=== PATIENT | male | born 1940 | race Asian ===

== ENCOUNTER 2017-10-30 08:22 | Outpatient (CLI) | payer OTHER | END 2017-10-30 18:00 | disposition home or self-care (01) | LOC: MRI 08:22 | DX: G30.1 Alzheimer's disease with late onset (principal) ==

== ENCOUNTER 2018-02-08 13:19 | Outpatient (CLI) | payer OTHER | END 2018-02-08 13:42 | disposition short-term general hospital (02) | LOC: AMB 13:19 | DX: R41.82 Altered mental status, unspecified (principal); R44.2 Other hallucinations | CPT/HCPCS: A0425; A0429 ==

== ENCOUNTER 2018-02-08 14:01 | Emergency (ER) | payer OTHER ==
[~2018-02-08] VITALS: Ht 175.3 cm; Wt 80.3 kg
[2018-02-08 13:55] VITALS: TEMP 98.1
[2018-02-08 14:49] LABS: POTASSIUM 3.9 mmol/L (3.6-5.2); SODIUM 135 mmol/L (136-145)
[2018-02-08 14:51] LABS: PLATELET COUNT 202 K/uL (142-355)
[2018-02-08 15:02] LABS: PARTIAL THROMBOPLASTIN TIME 26.6 SECONDS (24.5-33.6)
[2018-02-08 17:32] VITALS: BP 140/84
== END 2018-02-08 17:32 | disposition home or self-care (01) ==
LOC: ED 14:01
PROVIDERS: Emergency Medicine
DX: F03.90 Unspecified dementia, unspecified severity, without behavioral disturbance, psychotic disturbance, mood disturbance, and anxiety (principal); R00.0 Tachycardia, unspecified; F22 Delusional disorders; R07.89 Other chest pain
CPT/HCPCS: 80053; 80307; 80320; 80329; 81000; 82550; 82553; 84484; 85027; 85610; 85730; 93005; 99283

== ENCOUNTER 2018-06-19 16:15 | Outpatient (CLI) | payer OTHER | END 2018-06-19 22:41 | disposition home or self-care (01) | LOC: LABW 16:15 | DX: B35.1 Tinea unguium (principal) | CPT/HCPCS: 36415; 84450; 84460 ==

== ENCOUNTER 2019-12-30 14:01 | Outpatient (CLI) | payer OTHER | END 2019-12-30 22:01 | disposition home or self-care (01) | LOC: RAD 14:01 | DX: M54.89 Other dorsalgia (principal); W01.0XXA Fall on same level from slipping, tripping and stumbling without subsequent striking against object, initial encounter ==

== ENCOUNTER 2020-01-09 15:30 | Observation (INO) | payer OTHER ==
[~2020-01-09] VITALS: Ht 172.7 cm; Wt 74.2 kg
[2020-01-09 19:09] VITALS: BP 153/88; TEMP 98.6; Ht 172.7 cm; Wt 74.2 kg
[2020-01-09 19:09] LABS: PLATELET COUNT 319 K/uL (142-355)
[2020-01-09 19:31] LABS: POTASSIUM 4.9 mmol/L (3.6-5.2); SODIUM 137 mmol/L (136-145)
[2020-01-09 20:00] VITALS: BP 151/93; TEMP 97.8
[2020-01-09 23:32] VITALS: BP 140/80; BP 171/102; TEMP 98.1
[2020-01-10 03:53] VITALS: TEMP 97.7
[2020-01-10 05:17] LABS: PLATELET COUNT 238 K/uL (142-355)
[2020-01-10 05:37] LABS: POTASSIUM 4.4 mmol/L (3.6-5.2); SODIUM 138 mmol/L (136-145)
[2020-01-10 08:00] VITALS: BP 155/85; TEMP 97.6
[2020-01-10 12:00] VITALS: BP 149/75; TEMP 97.7
[2020-01-10 16:00] VITALS: BP 142/79; TEMP 98
[2020-01-10 20:00] VITALS: BP 145/87; TEMP 97.8
[2020-01-10 23:49] VITALS: BP 154/80; TEMP 98.1
[2020-01-11 04:00] VITALS: BP 164/87; TEMP 98.3
[2020-01-11 04:22] LABS: PLATELET COUNT 226 K/uL (142-355); POTASSIUM 3.9 mmol/L (3.6-5.2)
[2020-01-11 08:00] VITALS: BP 121/64; TEMP 98.1
[2020-01-11 12:00] VITALS: BP 124/76; TEMP 98.2
== END 2020-01-11 17:10 | disposition home or self-care (01) ==
LOC: MED/SURG 15:30
PROVIDERS: ADMIT Family Medicine
DX: M62.82 Rhabdomyolysis (principal); E86.0 Dehydration; I10 Essential (primary) hypertension; E11.9 Type 2 diabetes mellitus without complications; L98.8 Other specified disorders of the skin and subcutaneous tissue; F03.91 Unspecified dementia, unspecified severity, with behavioral disturbance; M62.81 Muscle weakness (generalized); E53.8 Deficiency of other specified B group vitamins; R53.83 Other fatigue; M54.5 Low back pain; B37.49 Other urogenital candidiasis; B95.7 Other staphylococcus as the cause of diseases classified elsewhere; B96.1 Klebsiella pneumoniae [K. pneumoniae] as the cause of diseases classified elsewhere
CPT/HCPCS: 80053; 81000; 82248; 82550; 82553; 83735; 83880; 84100; 84484; 85027; 86592; 87040; 87070; 87077; 87101; 87185; 87186; 87535; 93005; 96360; 96361; 99220; G0378; G0379; G0432

== ENCOUNTER 2020-09-08 03:40 | Emergency (ER) | payer OTHER ==
[~2020-09-08] VITALS: Ht 172.7 cm; Wt 79.4 kg
[2020-09-08 03:40] VITALS: BP 175/100; TEMP 98.7
[2020-09-08 05:03] LABS: PLATELET COUNT 152 K/uL (142-355)
[2020-09-08 05:15] LABS: POTASSIUM 3.9 mmol/L (3.6-5.2)
[2020-09-08] MEDS ORDERED: QUET25TA2 PO (11:40)
[2020-09-08] MEDS ORDERED: DONEPEZIL HYDRO10 MG PO (11:41)
[2020-09-08] MEDS ORDERED: BENZTROPINE0.5 MG PO (11:43)
[2020-09-08] MEDS ORDERED: HYDR25CA25 PO (11:44)
[2020-09-08] MEDS ORDERED: DICL1GEL2 TOP (11:46)
[2020-09-08] MEDS ORDERED: TRIA0.1C19 TOP (11:47)
[2020-09-08] MEDS ORDERED: BAYER ASPIRIN325 MG PO (11:49)
[2020-09-08] MEDS ORDERED: PEPCID40 MG PO (11:51)
== END 2020-09-08 10:54 | disposition other institution (70) ==
LOC: ED 03:40
PROVIDERS: Family Medicine
DX: F03.91 Unspecified dementia, unspecified severity, with behavioral disturbance (principal); Z11.59 Encounter for screening for other viral diseases; Z04.6 Encounter for general psychiatric examination, requested by authority
CPT/HCPCS: 36415; 80053; 81000; 85027; 87635; 93005; 99285; U0003

== ENCOUNTER 2021-01-13 16:48 | Outpatient (CLI) | payer OTHER ==
[~2021-01-13 16:48] MED LIST: ACET-206 PO; BAYER ASPIRIN325 MG PO; BENZTROPINE0.5 MG PO; DICL1GEL2 TOP; DONEPEZIL HYDRO10 MG PO; HYDR25CA25 PO; MAGNSUS68 PO; MEMA5TAB PO; OLANZAPINE5 MG PO; PEPCID40 MG PO; QUET25TA2 PO; TRIA0.1C19 TOP
[2021-01-13 17:08] LABS: PLATELET COUNT 151 K/uL (142-355)
[2021-01-31] MEDS ORDERED: MEMA5TAB PO (08:42)
[2021-01-31] MEDS ORDERED: SCOP1.5D TOP (08:43)
[2021-01-31] MEDS ORDERED: OLAN2.5T2 PO (08:43)
== END 2021-01-13 21:56 | disposition home or self-care (01) ==
LOC: LABW 16:48
PROVIDERS: ATTEND Nurse Practitioner Family
DX: E86.0 Dehydration (principal)
CPT/HCPCS: 36415; 80053; 82550; 82553; 85027

== ENCOUNTER 2021-01-14 11:39 | Outpatient (CLI) | payer OTHER ==
[~2021-01-14] VITALS: Ht 167.6 cm; Wt 75.7 kg
[2021-01-31] MEDS ORDERED: MEMA5TAB PO (08:42)
[2021-01-31] MEDS ORDERED: OLAN2.5T2 PO (08:43)
[2021-01-31] MEDS ORDERED: SCOP1.5D TOP (08:43)
== END 2021-01-14 21:32 | disposition home or self-care (01) ==
LOC: INF 11:39
PROVIDERS: ATTEND Family Medicine
DX: M62.82 Rhabdomyolysis (principal)
CPT/HCPCS: 96360; 96361

== ENCOUNTER 2021-01-20 02:02 | Inpatient (IN) | payer OTHER ==
[~2021-01-20] VITALS: Ht 167.6 cm; Wt 74.1 kg
[2021-01-20] VITALS (10 sets, daily range): BP systolic 117–181; BP diastolic 62–96; TEMP 98.7–101.4; Ht 167.6 cm; Wt 74.1 kg
[2021-01-20 03:09] LABS: PLATELET COUNT 179 K/uL (142-355)
[2021-01-20 03:27] LABS: POTASSIUM 4.4 mmol/L (3.6-5.2)
--- NOTE | 2021-01-20 06:48 | NUR ---
01/20/21 AT 0458 PT. ADMITTED TO ROOM #1111 VIA STRETCHER FROM THE ER TO DR. NEGRON CARE FOR DIAGNOSIS OF URINARY TRACT INFECTION, UROSEPSIS AND ALTERED MENTAL STATUS. PT. HAS A HISTORY OF DEMENTIA, ALZHEIMERS DISEASE, AND SCHIZOPHRENIA. HE LIVES AT HOME WITH HIS DAUGHTER WHO IS HIS PRIMARY CAREGIVER AND IS MANAGED WELL NORMALLY. WHEN PATIENT HAS UTI OR ANY OTHER ILLNESS IN THE PAST HE HAS GOTTEN CONFUSED AND BECOME COMBATIVE AND AGGRESSIVE TO HIS DAUGHTER BUT NORMALLY IS COOPERATIVE WITH CARE. PT. DAUGHTER HAD HIM EVALUATED IN THE ER LAST PM DUE TO "NOT ACTING HIS NORM, WEAKNESS, FREQUENT URINATION AND TREMORS. HE WAS FOUND TO HAVE A UTI AND WAS FEBRILE ON ARRIVAL TO ER WITH A TEMP OF 101.4 AND HIS LACTIC ACID LEVEL IS ELEVATED AT 1.5 . PATIENT IS UNABLE TO UNDERSTAND INSTRUCTIONS SO HE IS AND WILL BE FREQUENTLY CHECKED ON AND HIS BED ALARM IS TO REMAIN ON AT ALL TIMES. PT. DOES NORMALLY AMBULATE VERY WELL AT HOME ON A NORMAL BASIS. WILL CONTINUE TO MONITOR.
--- NOTE | 2021-01-20 10:04 | NUR ---
UPDATED DR. PIERSON ON PT'S LABS AND URINALYSIS FROM THE ER, DR. PIERSON ORDERS TO CHANGE THE ROCEPHIN FROM Q24 TO Q12 AND TO REPEAT A CBC, LACTIC ACID, CMP WITH MAG AND PHOS, NO FURTHER ORDERS GIVEN AT THIS TIME
--- NOTE | 2021-01-20 10:22 | NUR ---
01/20/2021 1020 LAB PRESENT IN ROOM TO COLLECT BLOOD FOR NEW ORDERS PER DR. PIERSON.CC
--- NOTE | 2021-01-20 10:49 | NUR ---
DR. PIERSON ORDERS TO START PT'S HOME MEDS AT THIS TIME, NO FUTHER ORDERS GIVEN
[2021-01-20 10:53] LABS: PLATELET COUNT 184 K/uL (142-355)
--- NOTE | 2021-01-20 11:37 | NUR ---
01/20/2021 1050 DAUGHTER ANAYELI BEAVER CALLED TO NURSING STATION TO CHECK ON FATHER.DAUGHTER STATES PT NORMALLY TALKS AND AMBULATES BUT NOT SINCE HE HAS BEEN SICK.ALSO PT NORMALLY HAS A GOOD APPETITE BUT TOLD HER PT WILLNOT EAT ANYTHING AT THIS TIME SMALL BITES OF PUDDING.DAUGHTER STATED SHE WILL COME BY THIS AFTERNOON.CC
[2021-01-20 12:01] LABS: POTASSIUM 4.3 mmol/L (3.6-5.2)
--- NOTE | 2021-01-20 12:55 | NUR ---
01/20/2021 1300 PT GIVEN SIPS OF TEA WITH 1 BITE OF FOOD NOT EATING MUCH.BRIEF CHANGED WITH URINE CLEAR YELLOW IN COLOR NO ODOR.BEDALARM PLACED BACK ON BED.CC
--- NOTE | 2021-01-20 13:56 | NUR ---
01/20/2021 1350 PT EYES OPEN GARBLED SPEECH OFFERED SIPS OF TEA BUT DOESNOT WANT ANY AT THIS TIME.CALL LIGHT WITHIN REACH.CC
--- NOTE | 2021-01-20 14:50 | NUR ---
01/20/2021 1450 PT IS AWAKE UPON NTRY TO ROOM OFFERED PT SOMETHING TO DRINK BUT REFUSED ANYTHING.PT IS STATING FOR ME TO LEAVE ROOM AND NOT COME BACK.TOLD HIM I WILL LEAVE BUT WILL RETURN SHORTLY.CALL LIGHT WITHIN REACH.BEDALARM IS ON.CC
--- NOTE | 2021-01-20 15:24 | NUR ---
01/20/2021 1310 PT OUT OF BED ON HIS ON PULLED IV OUT AOOLIED 2X2 APPLIED SECURED WITH TEGADERM.BRIEF CHANGED LARGED URINE.CC
--- NOTE | 2021-01-20 16:03 | NUR ---
01/20/2021 1605 LAB PRESENT IN ROOM TO COLLECT BLOOD FOR LACTIC ACID.CC
--- NOTE | 2021-01-20 16:58 | NUR ---
01/20/2021 1703 RASHMI ALBA WENT TO SEE PATIENT IS SLEEPINE EYES CLOSED RESP EVEN NONLABORED.CC
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
--- NOTE | 2021-01-20 17:41 | NUR ---
01/20/2021 1746 PT BEDALARM GOING OFF WENT TO ROOM PT PULLED BRIEF OFF AND GOWN OFF.PT IS AGGRESSIVE KICKING LEGS AT NURSES.CURSING AT NURSES REFUSED CARE.CALL LIGHT WITHIN REACH.CC
--- NOTE | 2021-01-20 18:16 | NUR ---
01/20/20211754 HERE NOTIFIED HER OF PATIENT WANTS TO BE AGRESSIVE AND KICK LEGS AND REFUSING CARE.NEW ORDERS RECEIVED PER .CC
--- NOTE | 2021-01-20 18:42 | NUR ---
01/20/2021 1840 PT IS LYING EYES CLOSED RESP EVEN NONLABORED NOT QUIET ASLEEP NOT TRYING TO GET OUT OF BED.BEDALARM IS ON BED.CC
[2021-01-21] VITALS: BP 148/72; TEMP 98.7
[2021-01-21 04:00] VITALS: BP 142/79; TEMP 100
[2021-01-21 04:09] LABS: PLATELET COUNT 166 K/uL (142-355)
[2021-01-21 04:53] LABS: POTASSIUM 4.1 mmol/L (3.6-5.2)
[2021-01-21 08:00] VITALS: BP 142/72; TEMP 100.2
--- NOTE | 2021-01-21 09:31 | NUR ---
01/21/2021 0850 ASSISTED PT TO EAT BREAKFAST PT EAT PUDDING AND SOME GRITS AND EGGS.ALSO DRUNK I CARTON OF MILK AND JUICE.PT WAS AGREEABLE WHILE EATING BREAKFAST.BUT PT STARTING SWINGING ARMS AND SOMEWHAT AGGRESSIVE DIDNOT TRY TO GET OF BED.WENT BACK TO SLEEP AFTER THIS.CALL LIGHT WITHIN REACH ALSO BED ALARM IS ON.CC
--- NOTE | 2021-01-21 10:34 | NUR ---
01/21/2021 1000 PT BRIEF CHANGED WITH LARGE URINE.BED LINEN AND GOWN CHANGED.PT IS CALM WHILE TURNING AND REPOSTIONED.PT IS POSTIONED TO RT SIDE.NAD NOTED.CALL LIGHT WITHIN REACH.CC
--- NOTE | 2021-01-21 10:45 | NUR ---
01/21/2021 1040 DAUGHTER PRESENT IN ROOM SPOKE WITH HER ABOUT HER FATHER AND CONDITION.ALSO TOLD HER THAT I WILL LET KALIN RASHMI KNOW IF THERE IS ANYTHING FURTHER SHE NEEDS TO SPEAK TO HER ABOUT.CC
--- NOTE | 2021-01-21 10:52 | NUR ---
01/21/2021 1050 PARTH LEUNG TO SPEAK WITH DAUGHTER ANAYELI DISCUSSED PLAN OF CARE AFTER DISCHARGE FROM HOSPITAL.CC
[2021-01-21 12:00] VITALS: BP 90/50; TEMP 98.7
--- NOTE | 2021-01-21 12:45 | NUR ---
01/21/2021 1250 RESTING WITH EYES CLOSED RESP EVEN NONLABORED NAD NOTED.CALL LIGHT WITHIN REACH.CC
--- NOTE | 2021-01-21 13:19 | NUR ---
01/21/2021 1315 ASSISTED PT TO EAT SOME SQUASH ALSO DRUNK ENSURE PLUS.AND ALSO DRUNK CUP OF TEA.PT WAS MORE AGREEABLE A THIS TIME.PT STATED HE HAD TO PEE OFFERED URINAL WILL CONTINUE TO MONITOR FOR OUTPUT.CC
--- NOTE | 2021-01-21 13:30 | NUR ---
01/21/2021 PT DIDNOT VOID IN URINAL AT THIS TIME.CC
--- NOTE | 2021-01-21 14:10 | NUR ---
01/21/2021 1330 TURNED AND REPOSTIONED FOR COMFORT PT TOLERATED WELL NO AGGRESSIVE EPISODE.CALL LIGHT WITHINREACH.CC
--- NOTE | 2021-01-21 14:38 | NUR ---
01/21/2021 1430 RESTING IN BED WITH EYES CLOSED RESP EVEN NONLABORED NAD NOTED.CALL LIGHT WITHIN [facility].CC
[2021-01-21 16:00] VITALS: BP 129/73; TEMP 98.9
--- NOTE | 2021-01-21 18:19 | NUR ---
01/21/2021 1745 BRIEF CHANGED WITH LARGE URINE CLEAR IN COLOR.TURNED AND REPOSTIONED TOLERATED WELL.NO AGGRESSIVE BEHAVIOR.CALL LIGHT WITHIN REACH.CC
--- NOTE | 2021-01-21 18:23 | NUR ---
01/21/2021 1800 PT FED DINNER TRAY 50 PERCENT TOLERATED WELL.NO AGGRESSIVE BEHAVIOR NOTED PER PCT.CC
[2021-01-21 19:58] VITALS: BP 149/74; TEMP 100
[2021-01-22] VITALS (7 sets, daily range): BP systolic 91–181; BP diastolic 66–100; TEMP 97.6–99.1
--- NOTE | 2021-01-22 02:15 | NUR ---
PATIENT LYING IN BED IN LOW FOWLERS POSITION WITH EYES OPEN. PATIENT DENIES ANY PAIN, NEEDS OR C/O AT THIS TIME. NO S/SX OF DISTRESS NOTED WITH PATIENT AT THIS TIME.
--- NOTE | 2021-01-22 02:52 | NUR ---
AT 0000 PATIENT WAS BECOMING AGGITATED AND HIS BP WAS 176/100. I CALLED DR PIERSON TO SEE IF SHE WANTED ANY MEDICATION FOR HIS BP. SHE SAID WAIT 30MINS AFTER HE CALMED DOWN AND GET A MANUAL BP. IF HIS SYSTOLIC WAS STILL OVER 150 GIVE HIM 0.2 MG OF CLONIDINE. I RECHECKED IT MANUALLY AND IT WAS 140/82. THE CLONIDINE WAS HELD
--- NOTE | 2021-01-22 04:09 | NUR ---
PATIENT BECOMES VERBALLY AGGRESSIVE TO STAFF DURING VITALS CHECK AND BRIEF CHANGES. STAFF CONTINUES TO REORIENT AND REASURE PATIENT OF HIS SAFTY. PATIENT IS NOW RESTING QUIETLY BUT MUMBLING SOFTLY TO HIMSELF. NO ADISTRESS NOTED
[2021-01-22 05:13] LABS: PLATELET COUNT 182 K/uL (142-355)
--- NOTE | 2021-01-22 08:11 | NUR ---
PT LAYING IN BED IN NAD, PT AWAKENS TO VOICE, ACCEPTS PERICARE AND REPOSITIONING FROM STAFF. MED, SOFT BM AND URINARY INCONTINENCE NOTED.
--- NOTE | 2021-01-22 09:33 | NUR ---
MG RIDER SPIKED, INFUSING PER PROTOCOL W/O DIFFICULTY.
--- NOTE | 2021-01-22 09:49 | NUR ---
PO MEDS CRUSHED AND ADMIN IN APPLESAUCE. DAUGHTER AT BEDSIDE. PT ACCEPTS MEDS, IS COMPLIANT WITH STAFF, CONVERSES WITH DAUGHTER.
--- NOTE | 2021-01-22 11:25 | NUR ---
PHOS RIDER SPIKED, INFUSING TO 22G IN RFA PER PHARMACY RECOMMENDATION. PT ÁNGELA WELL.
--- NOTE | 2021-01-22 12:41 | NUR ---
PT RECIEVED A BED BATH THIS AM WITH NO AGGRESSIVE BEHAVIORS TO STAFF.
--- NOTE | 2021-01-22 13:13 | NUR ---
PT INCONTINENT URINE- LINENS CHANGED, PERICARE PROVIDED.
--- NOTE | 2021-01-22 13:58 | NUR ---
PT LAYING IN BED, EYES CLOSED, RR EVEN AND NON LABORED, BED LOW, LOCKED, SR UP X 2 FOR SAFETY. CALL LIGHT IN EASY REACH. ALARM SET.
--- NOTE | 2021-01-22 14:25 | NUR ---
OBSERVED PT SITTING ON THE FLOOR. NO INJURIES NOTED. MD AND FAMILY NOTIFIED. DOCUMENTATION COMPLETED PER POLICY.
--- NOTE | 2021-01-22 14:30 | NUR ---
DR. PIERSON NOTIFIED OF EVENT BY Stephen RUIZ RN CN. VO GIVEN TO CONTINUE TO MONITOR FOR CHANGES AND NOTIFY
--- NOTE | 2021-01-22 14:40 | NUR ---
PT'S DAUGHTER NOTIFIED. DAUGHTER IN TO BRING PT FOOD FROM HOME.
--- NOTE | 2021-01-22 15:20 | NUR ---
IVPB ROCEPHIN SPIKED, DAUGHTER STILL AT BEDSIDE FEEDING PT FOOD FROM HOME. PT IN NAD, IS EAING AND TALKING TO FAMILY MEMBER.
--- NOTE | 2021-01-22 16:28 | NUR ---
PT IN LOW FOWLERS SITTING UP IN BED, IN NAD, LOOKING OUTSIDE THE WINDOW, BED LOW, LOCKED, SR UP X3, BED ALARM ON.
--- NOTE | 2021-01-22 17:25 | NUR ---
BED ALARM SOUNDED, PT SITTING ON SIDE OF BED, ATTEMPTED TO ASSIST PT BACK TO BED X 2 PERSON ASSIST, PT RESISTED HELP AND STATED HE WAS GOING TO CALL THE POLICE BECAUSE WE WERE "TRYING TO STEAL FROM HIM". PT REPOSITIONED, BED LOW, LOCKED, SR UP X3 FOR SAFETY, BED ALARM LOCKED.
--- NOTE | 2021-01-22 18:00 | NUR ---
PT REFUSED PM TRAY, REFUSED ENSURE, REFUSED BANANA, ACCEPTED TEA AND COOKIE. BED LOW, LOCKED, SR UP X3 FOR SAFETY, BED LOW, LOCKED, ALARM SET, CALL LIGHT IN EASY REACH.
--- NOTE | 2021-01-23 03:15 | NUR ---
IV INFILTRATED AT THIS TIME. UNABLE TO OBTAIN IV ACCESS DUE TO AGITATED BEHAVIOR.
[2021-01-23 03:28] VITALS: BP 113/89; TEMP 97.7
--- NOTE | 2021-01-23 05:51 | NUR ---
@ 0987 ON 01/23/21 [id number] MARINELLI RN, CHARGE NURSE, UPDATED DR. PIERSON OF PATIENT'S INCREASING AGGITATION, CURSING AT STAFF, REFUSAL OF MEDICATIONS AND INSERTION OF IV AFTER PATIENT REMOVED PREVIOUS IV, AND REFUSAL OF AM LAB DRAW ON THIS DATE. RECEIVED NEW VERBAL ORDERS FOR ATIVAN 2MG IM, HALDOL 10MG IM, AND BENADRYL 50MG IM X1 DOSE NOW, ORDERS NOTED AND CARRIED OUT. @ 2524 ON 01/23/21 ATIVAN 2MG IM, HALDOL 10MG IM, AND BENADRYL 50MG IM ALL GIVEN TO LEFT GLUTEUS JOSE WITHOUT DIFFICULTY AND WITHOUT INCIDENT.
[2021-01-23 07:42] LABS: PLATELET COUNT 216 K/uL (142-355)
[2021-01-23 08:00] VITALS: BP 142/94; TEMP 97.6
[2021-01-23 08:01] LABS: POTASSIUM 4.1 mmol/L (3.6-5.2)
--- NOTE | 2021-01-23 10:14 | NUR ---
DAUGHTER IN TO SHAVE AND BATH PT, ASSIST PROVIDED TO DAUGHTER WITH BATHING AND LINEN CHANGE. BED LOW, LOCKED SR UP X2 FOR SAFETY, CALL LIGHT IN EASY REACH.
[2021-01-23 12:08] VITALS: BP 165/87; TEMP 97.3
[2021-01-23 16:00] VITALS: BP 148/87; TEMP 98
--- NOTE | 2021-01-23 16:07 | NUR ---
DR PIERSON CONTACTED ABOUT THIS PATIENT BEING ADMITTED TO THE [facility] FOR SERVICES OF DR HENSLEY. I SPOKE WITH EDER ODELL RN WHO SAID THEY WOULD BE GLAD TO LOOK OVER HIS INFORMATION AND IF POSSIBLE TAKE THE PATIENT IN THE MORNING. I FAXED INFORMATION TO THE U FOR REVIEW IN THE MORNING.
--- NOTE | 2021-01-23 16:55 | NUR ---
UPDATE GIVEN TO PT'S DAUGHTER ANAYELI AT [phone]
[2021-01-23 19:01] VITALS: BP 162/89; TEMP 97.6
--- NOTE | 2021-01-23 20:12 | NUR ---
PT LETHARIC AT THIS TIME IN A HIGH-FOWLERS POSITION WITH BED IN THE LOWEST POSITION. PT. REFUSED PM PO MEDS AT THIS TIME.
[2021-01-23 23:32] VITALS: BP 164/97; TEMP 98
[2021-01-24 03:32] VITALS: BP 182/107; TEMP 98.4
--- NOTE | 2021-01-24 04:16 | NUR ---
0442- PHYSICIAN NOTIFIED ON PT'S MANUAL BP OF 184/106 AT THIS TIME. RECIEVED ORDERS FOR CLONIDINE 0.1 MG PO ONCE NOW DOSE AT THIS TIME, NOTED AND CARRIED OUT AT THIS TIME.
[2021-01-24 05:18] LABS: PLATELET COUNT 215 K/uL (142-355)
[2021-01-24 05:47] LABS: POTASSIUM 3.6 mmol/L (3.6-5.2)
--- NOTE | 2021-01-24 07:45 | NUR ---
PT'S AM ASSESSMENT COMPLETED AT THIS TIME. DEVORA PCT IN TO OBTAIN AM V/S. PT NOTED TO BE LAYING IN BED IN HF WITH EYES CLOSED. BREATHING NOTED TO BE EVEN AND UNLABORED. NS INFUSING TO 22G IV IN RFA AT 30ML/HR. PT NOTED TO HAVE POOR ORAL INTAKE REFUSING FOOD AND DRINK FROM STAFF.
[2021-01-24 08:00] VITALS: BP 148/70; TEMP 97.7
--- NOTE | 2021-01-24 08:15 | NUR ---
DEVORA, PCT OFFERED PT HIS BREAKFAST, PT REFUSES HIS BREAKFAST STATING "I DON'T WANT THAT FUCKING SHIT"
--- NOTE | 2021-01-24 09:53 | NUR ---
SPOKE WITH PT'S DAUGHTER TO NOTIFY HER OF REFERRAL TO [facility]. PT'S DAUGHTER STATES "HE IS JUST SUPPOSE TO BE GOING TO [place] FOR THERAPY." INFORMED HER THAT SOME OF HIS MEDS CAN BE ADJUSTED AND IMPROVE HIS BEHAVIOR BEFORE GOING TO [place]. DAUGHTER STATES "HE HAS BEEN THERE BEFORE, SO I KNOW ABOUT IT, I'M OK WITH HIM GOING THERE"
--- NOTE | 2021-01-24 09:59 | NUR ---
VERIFIED WITH DR. PIERSON IF PT'S WAS GOING TO BE A 10-13. DR. PIERSON STATES "THE FAMILY CAN SIGN HIM IN" ATTEMPTED TO CALL NETTIE PLAZA AT [facility]. NO ANSWER AT THIS TIME. WILL CON'T TO TRY TO CALL.
--- NOTE | 2021-01-24 10:15 | NUR ---
SPOKE WITH NETTIE PLAZA WHO STATES "PT'S FAMILY CANNOT SIGN HIM IN BECAUSE [facility] IS NOT POWER OF [employer] OR SHE WASN'T THE LAST TIME, I WILL CALL HER TO VERIFY" SPOKE WITH SARAH ALBA, WHO CONFIRMS PT HAS TO BE 10-13 BECAUSE THERE IS NO POWER OF [employer].
--- NOTE | 2021-01-24 10:25 | NUR ---
NOTIFIED DR. PIERSON OF 08-24. DR. PIERSON THEN STATES "OK WHO IS THE HOSPITALIST, CAN THEY SIGN FOR ME?" INFORMED HER DR. CANTU IS ON AND I WILL GET WITH HIM AND LET HER KNOW.
--- NOTE | 2021-01-24 10:26 | NUR ---
SPOKE WITH DR. CANTU REPORT GIVEN ON PT'S STATUS AND DR. PIERSON'S REQUEST FOR HIM TO SIGN 10-13. DR. CANTU STATES "YEAH I'LL DO IT, JUST FILL IT OUT AND BRING IT TO ME." DR. PIERSON NOTIFIED OF DR. CANTU'S REPSONSE. NO NEW ORDERS AT THIS TIME.
--- NOTE | 2021-01-24 10:35 | NUR ---
10-[address] OBTAINED AND SIGNED BY DR. CANTU AND MYSELF.
--- NOTE | 2021-01-24 10:45 | NUR ---
PT DAUGHTER BROUGHT HIM SOME PANCAKES PER HIS REQUEST. WHEN PT'S DAUGHTER ATTEMPTED TO FEED PT, PT STATES "GET THAT SHIT OUT OF MY FACE, STOP TRYING TO PUT IT IN MY EYE" PT'S DAUGHTER REASSURED HIM SHE WAS NOT TRYING TO PUT IT IN HIS EYE, PT CON'T TO REFUSE HIS MEAL.
--- NOTE | 2021-01-24 11:15 | NUR ---
PT'S DAUGHTER AT BEDSIDE. PARTH RN, UR DELINQUENT TAX COLLECTOR ASSISTANT AND MYSELF AT PT'S BEDSIDE AT THIS TIME TO SPEAK WITH PT'S DAUGHTER ANAYELI. PARTH NOTIFIED HER OF [facility] DECISION ABOUT ACCEPTING MR. LAURA AT THIS TIME. I UPDATED HER ON THE STATUS OF PT BEING TRANSFERRED TO [facility].
--- NOTE | 2021-01-24 11:34 | NUR ---
08-24 FAXED TO NETTIE PLAZA AT [facility].
--- NOTE | 2021-01-24 12:06 | NUR ---
REPORT GIVEN TO VANDANA NEGRON RN. ALL QUESTIONS ANSWERED. WILL SEND TECHS TO [employer] PT WHEN THEY ARE AVAILABLE.
--- NOTE | 2021-01-24 12:25 | NUR ---
PT IV DC'D TIP INTACT NO REDNESS OR SWELLING NOTED. TELEMETRY REMOVED AT THIS TIME.
--- NOTE | 2021-01-24 12:50 | NUR ---
COSME BRITO, [facility] TECH HERE TO GET PT. PT ASSISTED X2 TO W/C. PT TOLERATED WELL WITHOUT ANY AGRESSION OR COMBATIVE BEHAVIORS.
--- NOTE | 2021-01-24 17:19 | NUR ---
i received voice mail time stamped 01/21/21 @ 5:11pm from Elvia @ [facility] stating that pt did not meet inpt criteria. ref#[id number]. she requested additional clinical by 01/22 @ 12:15pm or peer to peer by this deadline. i phoned her today after Dr. Goldstein requested peer to peer, ph [phone] x [phone], fx [phone]. i am also faxing her additional clinical.
--- NOTE | 2021-01-25 15:29 | NUR ---
late entry 01/24/21 per Ivy @ [facility], pt is not yet stable for auth for [facility]. Daughter was requesting [facility] but they are not in network with members medicare advantage plan per Ivy. Our facility is in network for skilled/swing or he may also use [facility], [facility], or [facility]. Ivy stated to call back and restart the auth process when pt is stable and ready for this service. ph [phone].
--- NOTE | 2021-01-26 08:43 | NUR ---
per Gege Arambula @ [facility] this am 01/26/21 @ 7:10am, Dr. Goldstein can call for peer to peer review to their medical microbiologist Dr. Booker [phone] by tomorrow 01/27/21 @ 8am. I will notify Dr. Goldstein. [facility] , they are denying inpatient level of care.
--- NOTE | 2021-01-26 16:26 | NUR ---
per Dr. Goldstein, she did the peer review and got the inpatient stay approved by [facility] today.
[2021-01-31] MEDS ORDERED: MEMA5TAB PO (08:42)
[2021-01-31] MEDS ORDERED: SCOP1.5D TOP (08:43)
[2021-01-31] MEDS ORDERED: OLAN2.5T2 PO (08:43)
== END 2021-01-24 12:50 | disposition other institution (70) | DRG 872 ==
LOC: ED 02:02 → MED/SURG 04:15
PROVIDERS: ADMIT Family Medicine; ATTEND Family Medicine
DX: A41.89 Other specified sepsis (principal); F02.81 Dementia in other diseases classified elsewhere, unspecified severity, with behavioral disturbance; N39.0 Urinary tract infection, site not specified; E46 Unspecified protein-calorie malnutrition; G30.8 Other Alzheimer's disease; B96.4 Proteus (mirabilis) (morganii) as the cause of diseases classified elsewhere; I10 Essential (primary) hypertension; G62.89 Other specified polyneuropathies; E53.8 Deficiency of other specified B group vitamins; D72.828 Other elevated white blood cell count; J44.9 Chronic obstructive pulmonary disease, unspecified; Z86.73 Personal history of transient ischemic attack (TIA), and cerebral infarction without residual deficits
CPT/HCPCS: 36415; 51702; 80053; 81000; 82607; 83605; 83735; 84100; 84443; 85027; 87040; 87077; 87086; 87088; 87186; 87635; 96360; 96365; 99284; J0696; J1200; J1630; J2060; J3475; J3480; U0003

== ENCOUNTER 2021-05-10 14:34 | Outpatient (CLI) | payer OTHER ==
[~2021-05-10 14:34] MED LIST changes: +OLAN2.5T2 PO; +SCOP1.5D TOP
== END 2021-05-10 17:00 | disposition home or self-care (01) ==
LOC: LAB 14:34
PROVIDERS: ATTEND Nurse Practitioner Family
DX: R19.7 Diarrhea, unspecified (principal)
CPT/HCPCS: 83630; 87015; 87045; 87324; 87328; 87329; 87449; 87899

== ENCOUNTER 2023-03-22 15:50 | Outpatient (CLI) | payer OTHER ==
[2023-03-22 16:47] LABS: POTASSIUM 4.1 mmol/L (3.6-5.2)
== END 2023-03-22 18:00 | disposition home or self-care (01) ==
LOC: CT 15:50
PROVIDERS: ATTEND Nurse Practitioner Family
DX: F03.90 Unspecified dementia, unspecified severity, without behavioral disturbance, psychotic disturbance, mood disturbance, and anxiety (principal); I63.9 Cerebral infarction, unspecified
CPT/HCPCS: 36415; 80053